=== PATIENT | female | born 1950 | race Caucasian/White ===

== ENCOUNTER 2021-05-15 15:41 | Emergency (ER) | payer MEDICARE ==
[2021-05-15] MEDS ORDERED: HYDROmorphone 2 MG/ML SDV IM ONE (15:44)
[2021-05-15] MEDS ORDERED: Acetaminophen/oxyCODONE 325-5 MG Tab ONE (15:50)
[2021-05-15] MEDS ORDERED: LORazepam 1 MG Tab ONE ×2 (15:50→17:12)
[2021-05-15] MEDS ORDERED: Midazolam 1 MG/ML 2 ML SDV IVPUSH ONE (16:00)
== END 2021-05-15 17:20 | disposition home or self-care (01) ==
LOC: LB.ED 15:41
DX: S43.004A Unspecified dislocation of right shoulder joint, initial encounter (principal); E78.00 Pure hypercholesterolemia, unspecified; K21.9 Gastro-esophageal reflux disease without esophagitis; Z79.82 Long term (current) use of aspirin; W18.40XA Slipping, tripping and stumbling without falling, unspecified, initial encounter
CPT/HCPCS: 23650; 73020-RT; 73030-RT; 96372; 99283-25; A9270-GY; J1170; J2250

== ENCOUNTER 2023-05-20 12:38 | Emergency (ER) | payer MEDICARE ==
[2023-05-20] MEDS: Diphtheria/Tetanus Toxoids,Adult (Td) 0.5 ML SDV IM ONE (13:15)
[2023-05-20 14:51] VITALS: BP 146/92; PULSE 59
== END 2023-05-20 13:25 | disposition home or self-care (01) ==
LOC: LB.ED 12:38
DX: S01.81XA Laceration without foreign body of other part of head, initial encounter (principal); S05.8X1A Other injuries of right eye and orbit, initial encounter; Z23 Encounter for immunization; E03.9 Hypothyroidism, unspecified; Z79.82 Long term (current) use of aspirin; Z79.899 Other long term (current) drug therapy; Z86.16 Personal history of COVID-19; Z90.49 Acquired absence of other specified parts of digestive tract; W00.9XXA Unspecified fall due to ice and snow, initial encounter; Y93.01 Activity, walking, marching and hiking
CPT/HCPCS: 12011; 90471; 90714; 99283; 99283-25